=== PATIENT | male | born 1975 | race African-American/Black ===

== ENCOUNTER 2019-04-25 19:05 | Inpatient (IN) | payer OTHER ==
[2019-04-25 20:01] VITALS: BMI 31.8
--- NOTE | 2019-04-25 21:28 | HP ---
CIWA Score Nausea/Vomitin-No Nausea/No Vomiting Muscle Tremors: None Anxiety: 0-No Anxiety, at Ease Agitation: 0-Normal Activity Paroxysmal Sweats: No Perspiration Orientation: 2-Disoriented Date<2 days Tacttile Disturbances: 0-None Auditory Disturbances: 0-None Visual Disturbances: 3-Moderate Sensitivity (to lights) Headache: 0-None Present CIWA-Ar Total Score: 5 - Admission Criteria OASAS Guidelines: Admission for Medically Managed Detox: Requires at least one of the followin. CIWA greater than 12 2. Seizures within the past 24 hours 3. Delirium tremens within the past 24 hours 4. Hallucinations within the past 24 hours 5. Acute intervention needed for co occurring medical disorder 6. Acute intervention needed for co occurring psychiatric disorder 7. Severe withdrawal that cannot be handled at a lower level of care (continued vomiting, continued diarrhea, abnormal vital signs) requiring intravenous medication and/or fluids 8. Patient presents the following: Acute intervention needed for co-occurring med or psych disorder (s/p er txment at [facility] for s/p fall 2/2 alcohol intoxication ) Admission Criteria Met: Admission criteria met Admission ROS [facility] Chief Complaint: seeking detox for alcohol Allergies/Adverse Reactions: Allergies Allergy/AdvReac Type Severity Reaction Status Date / Time No Known Allergies Allergy Verified 04/25/19 20:01 History of Present Illness: ghere for alcohol detox. client was referred by [facility] after client presented their for a fall 2/2 alcohol intoxication. client was stabilized and referred fro detox. client presents w/o dc papers. case was d/w attending Dr. Lopez from [facility]. client presented for above head ct neg, ct spine, neg, facial ct nasal fx no txmnet needed. client presents with mild withdrawal sx's. reports daily alcohol intake last use 1 day ago. Denies eye coordinator of placement. denies hx/o black outs and sz. he also reports PCP abuse. Denies any significant clean time this past year. lives w/ mother, unemployed-disabled, pending court case. Exam Limitations: Physical Impairment (legally blind both eyes) - Ebola screening Have you traveled outside of the country in the last 21 days: No (N) Have you had contact with anyone from an Ebola affected area: No Do you have a fever: No - Review of Systems Constitutional: Changes in sleep EENT: reports: Blurred Vision (legally blind), Nose Congestion, Other (nasal fx) Respiratory: reports: No Symptoms reported Cardiac: reports: No Symptoms Reported GI: reports: No Symptoms Reported : reports: No Symptoms Reported Musculoskeletal: reports: No Symptoms Reported Neuro: reports: Other (nasal, upper and lower lip abrasion, right temporal ecchymosis) Endocrine: reports: No Symptoms Reported Hematology: reports: No Symptoms Reported Psychiatric: reports: Orientated x3, Anxious, Depressed (denies si/hi) Other Systems: Reviewed and Negative Patient History - Patient Medical History Hx Anemia: No Hx Asthma: Yes Hx Chronic Obstructive Pulmonary Disease (COPD): No Hx Cancer: No Hx Cardiac Disorders: No Hx Congestive Heart Failure: No Hx Hypertension: No Hx Hypercholesterolemia: Yes Hx Pacemaker: No HX Cerebrovascular Accident: No Hx Seizures: No Hx Dementia: No Hx Diabetes: No Hx Gastrointestinal Disorders: No Hx Liver Disease: No Hx Genitourinary Disorders: Yes (erection dysfunction) Hx Sexually Transmitted Disorders: No Hx Renal Disease (ESRD): No Hx Thyroid Disease: No Hx Human Immunodeficiency Virus (HIV): No Hx Hepatitis C: No Hx Depression: Yes (denies si/hi) Hx Suicide Attempt: No Hx Bipolar Disorder: No Hx Schizophrenia: No Other Medical History: legally blind - Patient Surgical History Past Surgical History: Yes Hx Orthopedic Surgery: Yes (r spine, hip, ankle, fibula,tibula fx w/ hardware repair) Anesthesia Reaction: No - PPD History Previous Implant?: Yes Documented Results: Positive w/o proof Implanted On Prior [facility] Admission?: No PPD to be Administered?: No - Smoking Cessation Smoking history: Former smoker Have you smoked in the past 12 months: No Initiated information on smoking cessation: No - Substance & Tx. History Hx Alcohol Use: Yes Hx Substance Use: Yes Substance Use Type: Alcohol, Tranquilizers (pcp) Hx Substance Use Treatment: No - Substances abused PCP Substance route: Smoking Frequency: Daily Amount used: 4 blunts Age of first use: 24 Date of last use: 04/24/19 Alcohol Substance route: Oral Frequency: Daily Amount used: 3-24 oz Age of first use: 14 Date of last use: 04/24/19 Admission Physical Exam [facility] - Vital Signs Vital Signs: Vital Signs - 24 hr 04/25/19 19:52 Temperature 98.9 F Respiratory 16 Rate Blood Pressure 142/86 - Physical General Appearance: Yes: Mild Distress, Anxious HEENTM: Yes: EOMI, Normocephalic, Normal Voice, Pharynx Normal, Nasal Congestion Respiratory: Yes: Chest Non-Tender, Lungs Clear, Normal Breath Sounds, No Respiratory Distress, No Accessory Muscle Use Neck: Yes: No masses,lesions,Nodules, Supple, Trachea in good position Breast: Yes: Breasts Symetrical Cardiology: Yes: Regular Rhythm, Regular Rate, S1, S2 Abdominal: Yes: Normal Bowel Sounds, Non Tender, Soft, Protuberent Genitourinary: Yes: Within Normal Limits Back: Yes: Normal Inspection Musculoskeletal: Yes: Other (UNSTEADY GAIT AMBUALTES WITH CANE) Extremities: Yes: Normal Capillary Refill, Normal Range of Motion, Non-Tender Neurological: Yes: Fully Oriented, Alert, Motor Strength 5/5, Depressed Affect Integumentary: Yes: Dry, Warm, Other (ABRASIONS TO NOSE, UPPER AND LOWER LIP KNUCKLES AND ECHHYMOTIC AREA TO R TEMPORAL) Lymphatic: Yes: Within Normal Limits - Diagnostic (1) Alcohol dependence with withdrawal, uncomplicated Current Visit: Yes Status: Acute (2) PCP (phencyclidine) abuse Current Visit: Yes Status: Acute (3) Status post fall Current Visit: Yes Status: Acute (4) Nasal fracture Current Visit: Yes Status: Acute Qualifiers: Encounter type: subsequent encounter Fracture healing: with routine healing (5) Ambulates with cane Current Visit: Yes Status: Chronic (6) Feels depressed Current Visit: Yes Status: Acute (7) Legally blind Current Visit: Yes Status: Chronic (8) HLD (hyperlipidemia) Current Visit: Yes Status: Chronic Qualifiers: Hyperlipidemia type: unspecified Qualified Code(s): E78.5 - Hyperlipidemia , unspecified (9) Asthma Current Visit: Yes Status: Chronic Qualifiers: Asthma severity: mild Asthma persistence: intermittent Asthma complication type: uncomplicated Qualified Code(s): J45.20 - Mild intermittent asthma, uncomplicated (10) History of TB (tuberculosis) Current Visit: Yes Status: Chronic Cleared for Admission S - Detox or Rehab [facility] Level of Care: Medically Managed Detox Regimen/Protocol: Librium Claeared for Rehab Admission: No Breathalyzer - Breathalyzer Breathalyzer: 0 Urine Drug Screen - Test Device Lot number: [id number] Expiration date: 11/27/20 - Control Is test valid?: Yes - Results Drug screen NEGATIVE: Yes Inpatient Rehab Admission - Rehab Decision to Admit Inpatient rehab admission?: No
[2019-04-25] MEDS ORDERED: ACETAMINOPHEN 325 MG TABLET (FP) PO PRN ×2 (21:40)
[2019-04-25] MEDS ORDERED: BISMUTH SUBSALICYLATE 524 MG/30 ML UD PO PRN (21:40)
[2019-04-25] MEDS ORDERED: MAG HYDROX/AL HYDROX/SIMETH 30 ML UNIT-DOSE CUP PO PRN (21:40)
[2019-04-25] MEDS ORDERED: DICYCLOMINE HCL 10 MG CAPSULE PO PRN (21:40)
[2019-04-25] MEDS ORDERED: MENTHOL/PHENOL 1 EACH UD MM PRN (21:40)
[2019-04-25] MEDS ORDERED: P-EPHED 60MG/TRIPROLIDI 2.5MG TABLET PO PRN (21:40)
[2019-04-25] MEDS ORDERED: guaiFENesin 200 MG/10 ML 10 ML UNIT-DOSE CUPS PO PRN (21:40)
[2019-04-25] MEDS ORDERED: IBUPROFEN 400 MG TABLET (FP) PO PRN (21:40)
[2019-04-25] MEDS ORDERED: ONDANSETRON *ODT* 4 MG TABLET SL PRN (21:40)
[2019-04-25] MEDS ORDERED: hydrOXYzine PAMOATE 25 MG CAPSULE (FP) PO PRN (21:40)
[2019-04-25] MEDS ORDERED: MAGNESIUM CITRATE 300 ML BOTTLE PO PRN (21:40)
[2019-04-25] MEDS ORDERED: chlordiazePOXIDE HCL 10 MG CAPSULE PO PRN (21:40)
[2019-04-25] MEDS ORDERED: MAGNESIUM HYDROX 2400MG/30ML ORAL SUSPENSION 30 ML CUP PO PRN (21:40)
[2019-04-25] MEDS ORDERED: METHOCARBAMOL 500 MG TABLET PO PRN (21:40)
[2019-04-25] MEDS: chlordiazePOXIDE HCL 25 MG CAPSULE PO SCH (23:31)
[2019-04-25] MEDS: THIAMINE HCL 100 MG TABLET (FP) PO SCH (23:31)
[2019-04-26] MEDS: chlordiazePOXIDE HCL 25 MG CAPSULE PO SCH ×3 (05:38→22:26)
[2019-04-26] MEDS: PRENATAL VITAMINS W/ FOLIC ACID TABLET (FP) PO SCH (10:33)
[2019-04-26 12:36] LABS: HEMATOCRIT 38.7 % (35.4-49); HEMOGLOBIN 12.7 GM/dL (11.7-16.9); MCH 31.5 pg (25.7-33.7); MCHC 32.7 g/dl (32.0-35.9); MEAN CELL VOLUME 96.3 fl (80-96); MEAN PLT VOLUME 8.2 fl (7.5-11.1); PLATELET COUNT 360 K/MM3 (134-434); RBC 4.02 M/mm3 (4.00-5.60); RDW 13.7 % (11.9-15.9); WHITE BLOOD COUNT 8.5 K/mm3 (4.0-10.0)
[2019-04-26 13:00] LABS: ALBUMIN 3.3 g/dl (3.4-5.0); BILIRUBIN,TOTAL 0.7 mg/dL (0.2-1); BLOOD UREA NITROGEN 9.7 mg/dL (7-18); CALCIUM 8.3 mg/dL (8.5-10.1); CREATININE 0.9 mg/dL (0.55-1.3); POTASSIUM 3.8 mmol/L (3.5-5.1); TOT PROT 6.5 g/dl (6.4-8.2)
[2019-04-26] MEDS: BACITRACIN 15 GM TUBE TOPICAL OINTMENT TP SCH ×2 (13:30→22:26)
--- NOTE | 2019-04-26 13:32 | EKG ---
Test Reason : Blood Pressure : / mmHG Vent. Rate : 090 BPM Atrial Rate : 090 BPM P-R Int : 140 ms QRS Dur : 106 ms QT Int : 382 ms P-R-T Axes : 044 039 051 degrees QTc Int : 467 ms SINUS RHYTHM WITH FREQUENT PREMATURE VENTRICULAR COMPLEXES OTHERWISE NORMAL ECG NO PREVIOUS ECGS AVAILABLE Confirmed by MD KIMBERLYN, JT ([id number]) on 04/26/2019 1:32:02 PM Referred By: Vamshi Nicole Confirmed By:JT SOFIA MD
--- NOTE | 2019-04-26 14:40 | EKG ---
Test Reason : Blood Pressure : / mmHG Vent. Rate : 085 BPM Atrial Rate : 085 BPM P-R Int : 142 ms QRS Dur : 098 ms QT Int : 366 ms P-R-T Axes : 061 038 053 degrees QTc Int : 435 ms SINUS RHYTHM WITH FREQUENT PREMATURE VENTRICULAR COMPLEXES OTHERWISE NORMAL ECG WHEN COMPARED WITH ECG OF 25-APR-2019 22:14, NON-SPECIFIC CHANGE IN ST SEGMENT IN ANTERIOR LEADS Confirmed by MD KIMBERLYN, JT ([id number]) on 04/26/2019 2:39:41 PM Referred By: Vamshi Nicole Confirmed By:JT SOFIA MD
--- NOTE | 2019-04-26 16:55 | PN ---
S Progress Note Note: Psychiatry Attending's note : Came to see patient. For psychiatric evaluation. Mr Vick is found asleep.
--- NOTE | 2019-04-26 17:56 | PN ---
S CIWA - CIWA Score Nausea/Vomitin-No Nausea/No Vomiting Muscle Tremors: None Anxiety: 2 Agitation: 0-Normal Activity Paroxysmal Sweats: 2 Orientation: 0-Oriented Tacttile Disturbances: 0-None Auditory Disturbances: 2-Mild Harshness/Frighten Visual Disturbances: 2-Mild Sensitivity Headache: 0-None Present CIWA-Ar Total Score: 8 BHS Progress Note (SOAP) Subjective: Anxious, Sweating. Objective: PATIENT A & O X 3, OBSERVED AMBULATING ON DETOX UNIT UNASSISTED. IN NO ACUTE DISTRESS. 04/26/19 17:57 Vital Signs Temperature 98.2 F 04/26/19 17:36 Pulse Rate 81 04/26/19 17:36 Respiratory Rate 17 04/26/19 17:36 Blood Pressure 144/86 04/26/19 17:36 O2 Sat by Pulse Oximetry (%) Laboratory Tests 04/26/19 04/26/19 04/26/19 07:30 07:30 07:30 WBC 8.5 RBC 4.02 Hgb 12.7 Hct 38.7 MCV 96.3 H MCH 31.5 MCHC 32.7 RDW 13.7 Plt Count 360 MPV 8.2 Sodium 140 Potassium 3.8 Chloride 107 Carbon Dioxide 27 Anion Gap 6 L BUN 9.7 Creatinine 0.9 Est GFR (CKD-EPI)AfAm 119.13 Est GFR (CKD-EPI)NonAf 102.79 Random Glucose 108 H Calcium 8.3 L Total Bilirubin 0.7 AST 18 ALT 27 Alkaline Phosphatase 48 Total Protein 6.5 Albumin 3.3 L RPR Titer Nonreactive LABS NOTED. Assessment: 04/26/19 17:58 WITHDRAWAL SYMPTOMS. Plan: CONTINUE DETOX. RESULTS OF DETOX ADMISSION AND REPEAT ECG'S NOTED (SINUS RHYTHM WITH PREMATURE VENTRICULAR COMPLEXES). PATIENT DENIES KNOWN HISTORY OF CARDIAC DISEASE. PATIENT DENIES CHEST PAIN OR DIZZINESS. PATIENT ADVISED TO IMMEDIATELY NOTIFY NURSING OR MEDICAL STAFF SHOULD HE BEGIN TO EXPERIENCE CHEST PAIN OR DIZZINESS AT ANY TIME AND TO FOLLOW-UP WITH PRIMARY CARE MEDICAL PROVIDER SOON POSSIBLE AFTER DISCHARGE FROM DETOX FOR THIS ECG FINDING. PATIENT VERBALIZED UNDERSTANDING OF RECOMMENDATION. COPY OF REPEAT ECG GIVEN TO PATIENT TO TAKE WITH HIM TO PRIMARY CARE MEDICAL PROVIDER FOR MEDICAL EVALUATION AFTER DISCHARGE FROM DETOX.
[2019-04-26] MEDS: THIAMINE HCL 100 MG TABLET (FP) PO SCH (22:26)
[2019-04-26] MEDS: MELATONIN 5 MG TABLETS PO PRN (22:27)
[2019-04-27] MEDS: chlordiazePOXIDE 5 MG CAPSULE PO SCH ×4 (06:36→22:26)
[2019-04-27] MEDS: BACITRACIN 15 GM TUBE TOPICAL OINTMENT TP SCH ×2 (10:37→22:26)
[2019-04-27] MEDS: PRENATAL VITAMINS W/ FOLIC ACID TABLET (FP) PO SCH (10:37)
[2019-04-27] MEDS ORDERED: cloNIDine HCL 0.1 MG TABLET PO PRN ×2 (13:21→13:23)
--- NOTE | 2019-04-27 13:24 | PN ---
S CIWA - CIWA Score Nausea/Vomitin-No Nausea/No Vomiting Muscle Tremors: None Anxiety: 3 Agitation: 2 Paroxysmal Sweats: 2 Orientation: 0-Oriented Tacttile Disturbances: 0-None Auditory Disturbances: 0-None Visual Disturbances: 0-None Headache: 0-None Present CIWA-Ar Total Score: 7 S Progress Note (SOAP) Subjective: Feels ok, medication working ok Objective: 04/27/19 13:18 Last Vital Signs Temp Pulse Resp BP Pulse Ox 96.3 F L 108 H 18 132/87 04/27/19 09:25 04/27/19 09:25 04/27/19 09:25 04/27/19 09:25 Tachycardia and elevated b/p noted: denies htn (not on medication) Laboratory Tests 04/26/19 04/26/19 04/26/19 07:30 07:30 07:30 WBC 8.5 RBC 4.02 Hgb 12.7 Hct 38.7 MCV 96.3 H MCH 31.5 MCHC 32.7 RDW 13.7 Plt Count 360 MPV 8.2 Sodium 140 Potassium 3.8 Chloride 107 Carbon Dioxide 27 Anion Gap 6 L BUN 9.7 Creatinine 0.9 Est GFR (CKD-EPI)AfAm 119.13 Est GFR (CKD-EPI)NonAf 102.79 Random Glucose 108 H Calcium 8.3 L Total Bilirubin 0.7 AST 18 ALT 27 Alkaline Phosphatase 48 Total Protein 6.5 Albumin 3.3 L RPR Titer Nonreactive Labs reviewed Assessment: 04/27/19 13:24 Continue detox Encouraged PO water intake Tachycardia and HTN: most likely r/t withdrawal, start clonidine prn Obtain EKG for tachycardia if it persists
[2019-04-27] MEDS: THIAMINE HCL 100 MG TABLET (FP) PO SCH (22:26)
[2019-04-27] MEDS: MELATONIN 5 MG TABLETS PO PRN (22:26)
[2019-04-28] MEDS ORDERED: chlordiazePOXIDE HCL 10 MG CAPSULE PO PRN
[2019-04-28] MEDS: chlordiazePOXIDE HCL 10 MG CAPSULE PO SCH ×3 (06:20→21:50)
[2019-04-28] MEDS: BACITRACIN 15 GM TUBE TOPICAL OINTMENT TP SCH ×3 (08:30→22:12)
[2019-04-28] MEDS: PRENATAL VITAMINS W/ FOLIC ACID TABLET (FP) PO SCH (10:16)
--- NOTE | 2019-04-28 11:05 | PN ---
S CIWA - CIWA Score Nausea/Vomitin Muscle Tremors: 2 Anxiety: 2 Agitation: 2 Paroxysmal Sweats: No Perspiration Orientation: 0-Oriented Tacttile Disturbances: 1-Very Mild Itch/Numbness Auditory Disturbances: 0-None Visual Disturbances: 0-None Headache: 2-Mild CIWA-Ar Total Score: 11 S Progress Note (SOAP) Subjective: alert,irritable,anxious,interrupted sleep,tremor Objective: 04/28/19 11:04 Vital Signs Temperature 97.9 F 04/28/19 09:09 Pulse Rate 84 04/28/19 09:09 Respiratory Rate 18 04/28/19 09:09 Blood Pressure 128/62 04/28/19 09:09 O2 Sat by Pulse Oximetry (%) Assessment: 04/28/19 11:05 withdrawal symptom Plan: continue detox librium regimen,discharge in am
[2019-04-28] MEDS: THIAMINE HCL 100 MG TABLET (FP) PO SCH (22:11)
[2019-04-29] MEDS ORDERED: chlordiazePOXIDE HCL 10 MG CAPSULE PO ONE (05:00)
[2019-04-29 06:35] VITALS: TEMP 97.9
--- NOTE | 2019-04-29 08:31 | DS ---
[facility] Detox Discharge Summary Admission Date: 04/25/19 Discharge Date: 04/29/19 - History Present History: Alcohol Dependence, Pcp Dependence - Physical Exam Results Vital Signs: Vital Signs Temperature 97.9 F 04/29/19 06:34 Pulse Rate 74 04/29/19 06:34 Respiratory Rate 20 04/29/19 06:34 Blood Pressure 100/76 04/29/19 06:34 O2 Sat by Pulse Oximetry (%) Pertinent Admission Physical Exam Findings: Vital Signs Temperature 97.9 F 04/29/19 06:34 Pulse Rate 74 04/29/19 06:34 Respiratory Rate 20 04/29/19 06:34 Blood Pressure 100/76 04/29/19 06:34 O2 Sat by Pulse Oximetry (%) Laboratory Tests 04/26/19 04/26/19 04/26/19 07:30 07:30 07:30 WBC 8.5 RBC 4.02 Hgb 12.7 Hct 38.7 MCV 96.3 H MCH 31.5 MCHC 32.7 RDW 13.7 Plt Count 360 MPV 8.2 Sodium 140 Potassium 3.8 Chloride 107 Carbon Dioxide 27 Anion Gap 6 L BUN 9.7 Creatinine 0.9 Est GFR (CKD-EPI)AfAm 119.13 Est GFR (CKD-EPI)NonAf 102.79 Random Glucose 108 H Calcium 8.3 L Total Bilirubin 0.7 AST 18 ALT 27 Alkaline Phosphatase 48 Total Protein 6.5 Albumin 3.3 L RPR Titer Nonreactive aaox3 ambulating no acute distress - Treatment Hospital Course: Detox Protocol Followed, Detoxed Safely, Responded well, Discharged Condition Good, Rehab Referral Accepted Patient has Accepted a Rehab Referral to: [facility] inpatient rehab - Medication Discharge Medications: Ambulatory Orders NK [No Known Home Medication] 04/25/19 - Diagnosis (1) Alcohol dependence with withdrawal, uncomplicated Current Visit: Yes Status: Chronic (2) Nasal fracture Current Visit: Yes Status: Acute Qualifiers: Encounter type: subsequent encounter Fracture healing: with routine healing (3) PCP (phencyclidine) abuse Current Visit: Yes Status: Chronic (4) Ambulates with cane Current Visit: Yes Status: Chronic (5) Asthma Current Visit: Yes Status: Chronic Qualifiers: Asthma severity: mild Asthma persistence: intermittent Asthma complication type: uncomplicated Qualified Code(s): J45.20 - Mild intermittent asthma, uncomplicated (6) HLD (hyperlipidemia) Current Visit: Yes Status: Chronic Qualifiers: Hyperlipidemia type: unspecified Qualified Code(s): E78.5 - Hyperlipidemia , unspecified (7) History of TB (tuberculosis) Current Visit: Yes Status: Chronic (8) Legally blind Current Visit: Yes Status: Chronic - AMA Did Patient Leave Against Medical Advice: No
[2019-04-29 09:18] VITALS: BP 141/73; PULSE 83
[2019-04-29] MEDS: PRENATAL VITAMINS W/ FOLIC ACID TABLET (FP) PO SCH (10:13)
[2019-04-29] MEDS: BACITRACIN 15 GM TUBE TOPICAL OINTMENT TP SCH (10:14)
[2019-04-29 15:09] LABS: PH,URINE 5.5 (5.0-8.0); URINE APPEARANCE CLEAR; URINE BILIRUBIN NEGATIVE (NEGATIVE); URINE COLOR YELLOW; URINE GLUCOSE (UA) NEGATIVE (NEGATIVE); URINE KETONE NEGATIVE (NEGATIVE); URINE LEUK ESTERASE NEGATIVE (NEGATIVE); URINE NITRITE NEGATIVE (NEGATIVE); URINE PROTEIN NEGATIVE (NEGATIVE)
== END 2019-04-29 13:12 | disposition other institution (70) | DRG 897 ==
LOC: YASAS 19:05 → Y6N 21:57
PROVIDERS: ADMIT Allergy & Immunology; ATTEND Allergy & Immunology
PROC: HZ2ZZZZ Detoxification Services for Substance Abuse Treatment (ICD-10-PCS; principal; 2019-04-25)
DX: F10.230 Alcohol dependence with withdrawal, uncomplicated (principal); F16.10 Hallucinogen abuse, uncomplicated; J45.20 Mild intermittent asthma, uncomplicated; E78.5 Hyperlipidemia, unspecified; H54.8 Legal blindness, as defined in USA; R00.0 Tachycardia, unspecified; I10 Essential (primary) hypertension; R26.2 Difficulty in walking, not elsewhere classified; Z99.89 Dependence on other enabling machines and devices; Z56.0 Unemployment, unspecified; N52.9 Male erectile dysfunction, unspecified; Z87.891 Personal history of nicotine dependence; S02.2XXD Fracture of nasal bones, subsequent encounter for fracture with routine healing; X58.XXXD Exposure to other specified factors, subsequent encounter
CPT/HCPCS: 36415; 71046-TC-FY; 80053; 81003; 85027; 86593; 93005; 93010; J0735

== ENCOUNTER 2019-04-29 12:54 | Inpatient (IN) | payer OTHER ==
--- NOTE | 2019-04-29 16:59 | HP ---
[facility] Rehab Assess/Revision - Admission History Admitted to Rehab from: [address] - Vital signs Vital Signs: Vital Signs Period Temp Pulse Resp BP Sys/Adkins Pulse Ox Last 24 Hr 98.1 F 95 18 125/68 - Findings Detox History & Physical reviewed: Yes Concur with findings: Yes Inpatient Rehab Admission - Rehab Decision to Admit Inpatient rehab admission?: Yes - Initial Determination Are CD services needed?: Yes Free of communicable disease: Yes Not in need of hospitalization: Yes - Rehab Admission Criteria Previous failed treatment: Yes Poor recovery environment: Yes Comorbidities: Yes Lacks judgement: Yes Patient is meeting Inpatient Rehab admission criteria:: Yes (pt admitted for alcohol detox-completed detox, now in rehab)
[2019-04-29] MEDS ORDERED: guaiFENesin 200 MG/10 ML 10 ML UNIT-DOSE CUPS PO PRN (17:03)
[2019-04-29] MEDS ORDERED: MAGNESIUM CITRATE 300 ML BOTTLE PO PRN (17:03)
[2019-04-29] MEDS ORDERED: MENTHOL/PHENOL 1 EACH UD MM PRN (17:03)
[2019-04-29] MEDS ORDERED: MAGNESIUM HYDROX 2400MG/30ML ORAL SUSPENSION 30 ML CUP PO PRN (17:03)
[2019-04-29] MEDS ORDERED: P-EPHED 60MG/TRIPROLIDI 2.5MG TABLET PO PRN (17:03)
[2019-04-29] MEDS ORDERED: hydrOXYzine PAMOATE 25 MG CAPSULE (FP) PO PRN (17:03)
[2019-04-29] MEDS ORDERED: MAG HYDROX/AL HYDROX/SIMETH 30 ML UNIT-DOSE CUP PO PRN (17:03)
[2019-04-29] MEDS ORDERED: NICOTINE POLACRILEX 2 MG GUM BUC PRN (17:03)
[2019-04-29] MEDS: MELATONIN 5 MG TABLETS PO PRN (21:19)
[2019-04-29] MEDS: THIAMINE HCL 100 MG TABLET (FP) PO SCH (21:19)
[2019-04-30] MEDS: PRENATAL VITAMINS W/ FOLIC ACID TABLET (FP) PO SCH (10:06)
[2019-04-30] MEDS: VITAMINS A AND D TOPICAL OINTMENT 60 GM TUBE TP SCH ×2 (12:00→18:00)
--- NOTE | 2019-04-30 17:56 | PN ---
[facility] Progress Note Note: Patient admitted to rehab for alcohol dependence. Referred from [facility] and completed detox prior to rehab admission. Labs reviewed, V/S stable. Continue rehab services. Vital Signs (72 hours) 04/29/19 04/30/19 04/30/19 13:30 00:30 03:30 Temperature 98.1 F Pulse Rate 95 H Respiratory 18 18 18 Rate Blood Pressure 125/68 04/30/19 06:50 Temperature 97.9 F Pulse Rate 79 Respiratory 18 Rate Blood Pressure 131/89
[2019-04-30] MEDS: THIAMINE HCL 100 MG TABLET (FP) PO SCH (22:09)
[2019-05-01] MEDS: VITAMINS A AND D TOPICAL OINTMENT 60 GM TUBE TP SCH ×4 (00:11→17:51)
[2019-05-01] MEDS: PRENATAL VITAMINS W/ FOLIC ACID TABLET (FP) PO SCH (10:14)
[2019-05-01] MEDS ORDERED: PT OWN MED DRAWER 7, Y5N ONE (12:10)
[2019-05-01] MEDS: THIAMINE HCL 100 MG TABLET (FP) PO SCH (21:19)
[2019-05-01] MEDS: MELATONIN 5 MG TABLETS PO PRN (21:19)
[2019-05-02] MEDS: VITAMINS A AND D TOPICAL OINTMENT 60 GM TUBE TP SCH ×5 (00:41→23:24)
[2019-05-02] MEDS: PRENATAL VITAMINS W/ FOLIC ACID TABLET (FP) PO SCH (10:35)
[2019-05-02] MEDS: THIAMINE HCL 100 MG TABLET (FP) PO SCH (21:30)
[2019-05-02] MEDS: MELATONIN 5 MG TABLETS PO PRN (21:31)
[2019-05-03] MEDS: VITAMINS A AND D TOPICAL OINTMENT 60 GM TUBE TP SCH ×4 (06:06→23:20)
[2019-05-03] MEDS: PRENATAL VITAMINS W/ FOLIC ACID TABLET (FP) PO SCH (10:33)
[2019-05-03] MEDS: MELATONIN 5 MG TABLETS PO PRN (21:49)
[2019-05-03] MEDS: THIAMINE HCL 100 MG TABLET (FP) PO SCH (21:49)
[2019-05-04] MEDS: VITAMINS A AND D TOPICAL OINTMENT 60 GM TUBE TP SCH ×3 (06:06→23:11)
[2019-05-04] MEDS: PRENATAL VITAMINS W/ FOLIC ACID TABLET (FP) PO SCH (10:00)
[2019-05-04] MEDS: THIAMINE HCL 100 MG TABLET (FP) PO SCH (21:15)
[2019-05-04] MEDS: MELATONIN 5 MG TABLETS PO PRN (21:15)
[2019-05-05] MEDS: VITAMINS A AND D TOPICAL OINTMENT 60 GM TUBE TP SCH ×4 (06:23→23:41)
[2019-05-05] MEDS: PRENATAL VITAMINS W/ FOLIC ACID TABLET (FP) PO SCH (09:37)
[2019-05-05] MEDS: IBUPROFEN 400 MG TABLET (FP) PO PRN ×2 (09:37→21:37)
[2019-05-05] MEDS: LIDOCAINE 5% TOPICAL PATCH TP SCH (13:28)
[2019-05-05] MEDS: THIAMINE HCL 100 MG TABLET (FP) PO SCH (21:36)
[2019-05-05] MEDS: LIDOCAINE PATCH REMOVAL MC SCH (21:36)
[2019-05-05] MEDS ORDERED: PT OWN MED DRAWER 7, Y5N ONE (21:37)
[2019-05-05] MEDS: MELATONIN 5 MG TABLETS PO PRN (21:38)
[2019-05-06] MEDS: VITAMINS A AND D TOPICAL OINTMENT 60 GM TUBE TP SCH ×4 (06:23→23:41)
[2019-05-06] MEDS: LIDOCAINE 5% TOPICAL PATCH TP SCH (10:17)
[2019-05-06] MEDS: PRENATAL VITAMINS W/ FOLIC ACID TABLET (FP) PO SCH (10:17)
[2019-05-06] MEDS: IBUPROFEN 400 MG TABLET (FP) PO PRN ×2 (10:19→21:17)
[2019-05-06] MEDS: ACETAMINOPHEN 325 MG TABLET (FP) PO PRN (12:40)
[2019-05-06] MEDS: MELATONIN 5 MG TABLETS PO PRN (21:16)
[2019-05-06] MEDS: LIDOCAINE PATCH REMOVAL MC SCH (21:16)
[2019-05-06] MEDS: THIAMINE HCL 100 MG TABLET (FP) PO SCH (21:16)
[2019-05-07] MEDS: VITAMINS A AND D TOPICAL OINTMENT 60 GM TUBE TP SCH (06:05)
[2019-05-07] MEDS: IBUPROFEN 400 MG TABLET (FP) PO PRN ×2 (07:07→21:41)
[2019-05-07] MEDS ORDERED: VITAMINS A AND D TOPICAL OINTMENT 60 GM TUBE TP PRN (09:15)
[2019-05-07] MEDS ORDERED: METHYL SALICYLATE/MENTHOL OINT 30 GM TUBE TP PRN (09:24)
[2019-05-07] MEDS: LIDOCAINE 5% TOPICAL PATCH TP SCH (10:41)
[2019-05-07] MEDS: PRENATAL VITAMINS W/ FOLIC ACID TABLET (FP) PO SCH (10:41)
[2019-05-07] MEDS: MELATONIN 5 MG TABLETS PO PRN (21:40)
[2019-05-07] MEDS: THIAMINE HCL 100 MG TABLET (FP) PO SCH (21:40)
[2019-05-07] MEDS: LIDOCAINE PATCH REMOVAL MC SCH (21:42)
[2019-05-08] MEDS: PRENATAL VITAMINS W/ FOLIC ACID TABLET (FP) PO SCH (09:46)
[2019-05-08] MEDS: LIDOCAINE 5% TOPICAL PATCH TP SCH (09:47)
[2019-05-08] MEDS: IBUPROFEN 400 MG TABLET (FP) PO PRN ×3 (09:48→21:14)
[2019-05-08] MEDS: MELATONIN 5 MG TABLETS PO PRN (21:13)
[2019-05-08] MEDS: LIDOCAINE PATCH REMOVAL MC SCH (21:13)
[2019-05-08] MEDS: THIAMINE HCL 100 MG TABLET (FP) PO SCH (21:13)
[2019-05-09] MEDS: IBUPROFEN 400 MG TABLET (FP) PO PRN ×2 (08:04→21:31)
[2019-05-09] MEDS: LIDOCAINE 5% TOPICAL PATCH TP SCH (10:10)
[2019-05-09] MEDS: PRENATAL VITAMINS W/ FOLIC ACID TABLET (FP) PO SCH (10:10)
[2019-05-09] MEDS: THIAMINE HCL 100 MG TABLET (FP) PO SCH (21:29)
[2019-05-09] MEDS: LOPERAMIDE HCL 2 MG CAPSULE PO PRN (21:30)
[2019-05-09] MEDS: MELATONIN 5 MG TABLETS PO PRN (21:31)
[2019-05-09] MEDS: LIDOCAINE PATCH REMOVAL MC SCH (21:32)
[2019-05-09] MEDS ORDERED: TRIMETHOBENZAMIDE HCL 200MG/2ML INJ IM PRN (23:47)
[2019-05-10] MEDS: LOPERAMIDE HCL 2 MG CAPSULE PO PRN (06:57)
[2019-05-10] MEDS: ACETAMINOPHEN 325 MG TABLET (FP) PO PRN (06:57)
[2019-05-10] MEDS: LIDOCAINE 5% TOPICAL PATCH TP SCH (11:29)
[2019-05-10] MEDS: PRENATAL VITAMINS W/ FOLIC ACID TABLET (FP) PO SCH (11:30)
[2019-05-10] MEDS: LIDOCAINE PATCH REMOVAL MC SCH (21:30)
[2019-05-10] MEDS: THIAMINE HCL 100 MG TABLET (FP) PO SCH (21:30)
[2019-05-10] MEDS: MELATONIN 5 MG TABLETS PO PRN (21:30)
[2019-05-10] MEDS: IBUPROFEN 400 MG TABLET (FP) PO PRN (21:31)
[2019-05-11] MEDS: PRENATAL VITAMINS W/ FOLIC ACID TABLET (FP) PO SCH (10:08)
[2019-05-11] MEDS: LIDOCAINE 5% TOPICAL PATCH TP SCH (10:08)
[2019-05-11] MEDS: IBUPROFEN 400 MG TABLET (FP) PO PRN (10:10)
[2019-05-11] MEDS: LIDOCAINE PATCH REMOVAL MC SCH (21:17)
[2019-05-11] MEDS: MELATONIN 5 MG TABLETS PO PRN (21:17)
[2019-05-11] MEDS: THIAMINE HCL 100 MG TABLET (FP) PO SCH (21:17)
[2019-05-12] MEDS: LOPERAMIDE HCL 2 MG CAPSULE PO PRN ×2 (04:58→10:05)
[2019-05-12] MEDS: PRENATAL VITAMINS W/ FOLIC ACID TABLET (FP) PO SCH (09:57)
[2019-05-12] MEDS: LIDOCAINE 5% TOPICAL PATCH TP SCH (09:57)
[2019-05-12] MEDS ORDERED: ONDANSETRON *ODT* 4 MG TABLET SL PRN (12:49)
--- NOTE | 2019-05-12 14:22 | PN ---
S Progress Note Note: PATIENT SEEN FOR C/O NAUSEA AND DIARRHEA. PATIENT BELIEVES IT IS DIET RELATED AND HAS BEEN ABSTAINING FROM LACTOSE RICH FOODS. REPORTS MILD RELIEF WITH IMMODIUM AND DIET CHANGES. Vital Signs Temperature 98.3 F 05/12/19 06:49 Pulse Rate 80 05/12/19 06:49 Respiratory Rate 18 05/12/19 06:49 Blood Pressure 111/58 L 05/12/19 06:49 O2 Sat by Pulse Oximetry (%) PE ALERT AND ORIENTED X 3 SKIN WARM AND DRY +PERRLA, EOMS INTACT BL GI NT, ND EXT FULL ROM, AMB AD ZOE A/P: NAUSEA AND DIARRHEA INCREASE ORAL FLUIDS CONTINUE IMMODIUM PRN ADD ZOFRAN PRN FOR NAUSEA
[2019-05-12] MEDS: MELATONIN 5 MG TABLETS PO PRN (21:36)
[2019-05-12] MEDS: LIDOCAINE PATCH REMOVAL MC SCH (21:36)
[2019-05-12] MEDS: THIAMINE HCL 100 MG TABLET (FP) PO SCH (21:36)
[2019-05-12] MEDS ORDERED: HYDROCORTISONE 2.5% TOPICAL CREAM 30 GM TUBE PR SCH (22:00)
[2019-05-13 06:53] VITALS: BP 124/70; PULSE 88; TEMP 98.6
--- NOTE | 2019-05-13 09:02 | DS ---
[facility] Rehab Discharge Summary - [facility] Rehab Discharge Summary Admission Date: 04/29/19 Discharge Date: 05/13/19 - History Present History: Alcohol dependence, PCP dependence Pertinent Past History: Pt was admitted for PCP and alcohol dependence. Pt uses PCP as a hallucinogen- makes the brain slow. d/w pt relapse prevention- meditation, food plan Pt states will f/u BI- outpt NA Pt states he does not need medications f/u with PCP in [place] - Discharge Physical Exam Vital Signs: Vital Signs Temperature 98.6 F 05/13/19 06:51 Pulse Rate 88 05/13/19 06:51 Respiratory Rate 18 05/13/19 06:51 Blood Pressure 124/70 05/13/19 06:51 O2 Sat by Pulse Oximetry (%) Pertinent Admission Physical Exam Findings: alert and oriented ambulatory poor vision- legally blind - Treatment Discharge Condition: Rehabilitated safely - Medication Discharge Medications: Ambulatory Orders NK [No Known Home Medication] 04/25/19 - Medication-Assisted Treatment (MAT) Medication-Assisted Treatment (MAT): No - Discharge Instructions Diet, activity, other medical instructions: Diet: eating every 4 hours Activity: increase activity as tolerated Other medical instructions: - Follow-up Referral Minutes to complete discharge: 30 - AMA Did Patient Leave Against Medical Advice: No
[2019-05-13] MEDS: PRENATAL VITAMINS W/ FOLIC ACID TABLET (FP) PO SCH (09:37)
[2019-05-13] MEDS: LIDOCAINE 5% TOPICAL PATCH TP SCH (09:38)
== END 2019-05-13 09:44 | disposition home or self-care (01) | DRG 895 ==
LOC: YASAS 12:54 → Y3W 12:56
PROVIDERS: ADMIT Neuromusculoskeletal Medicine & OMM; ATTEND Neuromusculoskeletal Medicine & OMM
PROC: HZ42ZZZ Group Counseling for Substance Abuse Treatment, Cognitive-Behavioral (ICD-10-PCS; principal; 2019-04-29)
DX: F10.20 Alcohol dependence, uncomplicated (principal); F16.20 Hallucinogen dependence, uncomplicated; J45.20 Mild intermittent asthma, uncomplicated; R11.0 Nausea; R19.7 Diarrhea, unspecified; H54.8 Legal blindness, as defined in USA; N52.9 Male erectile dysfunction, unspecified; E78.5 Hyperlipidemia, unspecified; R26.2 Difficulty in walking, not elsewhere classified; Z99.89 Dependence on other enabling machines and devices; S02.2XXD Fracture of nasal bones, subsequent encounter for fracture with routine healing; X58.XXXD Exposure to other specified factors, subsequent encounter; Z87.891 Personal history of nicotine dependence; Z86.11 Personal history of tuberculosis; Z56.0 Unemployment, unspecified

== ENCOUNTER 2019-12-02 11:50 | Inpatient (IN) | payer OTHER ==
--- NOTE | 2019-12-02 12:04 | BHS.RME ---
Substance Use & Tx History - Substance Use History PCP Substance amount: $40 Frequency of use: Daily Substance route: Smoking Date of Last Use: 11/30/19 Alcohol Substance amount: 3 24 oz beers Frequency of use: Daily Substance route: Oral Date of Last Use: 12/01/19 Marijuana/Hashish Substance amount: 2 blunts Frequency of use: Daily Substance route: Smoking Date of Last Use: 12/02/19 - Last Treatment Date of last treatment: 04/25/19-05/13/19 Treatment type: Substance Use Disorder ([facility]) Where was last treatment: Detox (completed detox and rehab but relapsed immediately because he was forced to do it due to his mother.) Physical/Psych/Mental Status - Behavior General Behavior: Increased activity (restlessness, agitation) Eye Contact: Normal - Cooperativeness Cooperativeness: Cooperative - Thinking Thought Processes: Tight, Logical, Goal Directed - Physical Health Problems Is patient presently having any pain?: No Does patient presently have any injuries (include location): No Does patient currently have a fever: No Is patient : No CIWA Nausea/Vomitin-No Nausea/No Vomiting Muscle Tremors: 1-None Visible, but [place] Anxiety: 6 Agitation: 2 Paroxysmal Sweats: No Perspiration Orientation: 3-Disoriented Date>2 days Tacttile Disturbances: 0-None Auditory Disturbances: 0-None Visual Disturbances: 0-None Headache: 2-Mild CIWA-Ar Total Score: 14
--- NOTE | 2019-12-02 15:10 | HP ---
CIWA Score Nausea/Vomitin-No Nausea/No Vomiting Muscle Tremors: 1-None Visible, but [place] Anxiety: 6 Agitation: 2 Paroxysmal Sweats: No Perspiration Orientation: 3-Disoriented Date>2 days Tacttile Disturbances: 0-None Auditory Disturbances: 0-None Visual Disturbances: 0-None Headache: 2-Mild CIWA-Ar Total Score: 14 - Admission Criteria OASAS Guidelines: Admission for Medically Managed Detox: Requires at least one of the followin. CIWA greater than 12 2. Seizures within the past 24 hours 3. Delirium tremens within the past 24 hours 4. Hallucinations within the past 24 hours 5. Acute intervention needed for co occurring medical disorder 6. Acute intervention needed for co occurring psychiatric disorder 7. Severe withdrawal that cannot be handled at a lower level of care (continued vomiting, continued diarrhea, abnormal vital signs) requiring intravenous medication and/or fluids 8. Admitting History and Physical - Admission Chief Complaint: Patient is a 44 year old male with history of degenerative myopia (legally blind), asthma, hypertension, hyperlipidemia, alcohol use disorder, nicotine dependence, PCP dependence presents for detox. History of Present Illness: Patient is a 44 year old male with history of degenerative myopia (legally blind), asthma, hypertension, hyperlipidemia, alcohol use disorder, nicotine dependence, PCP dependence presents for detox. Was seen in [facility] ED 11/30 after a fall (related to alcohol consumption). Patient presents here from [facility] ED today. Completed detox and rehab 04/25/2019- 05/13/2019. PMH: asthma, hypertension, hyperlipidemia, degenerative myopia (legally blind) PSH: right ankle, and right hip/ femur fracture- repaired with rods. Social: homeless, currently in [facility] Psych: depression Legal: denies - Substance Use History PCP Substance amount: $40 Frequency of use: Daily Substance route: Smoking Date of Last Use: 11/30/19. First used at 24 years old. Alcohol Substance amount: 3 24 oz beers Frequency of use: Daily Substance route: Oral Date of Last Use: 12/01/19 (first use at 13 years old. admits blackout yesterda y. 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 Marijuana/Hashish Substance amount: 2 blunts Frequency of use: Daily Substance route: Smoking Date of Last Use: 12/02/19 (first smoked at 13 years old. - Last Treatment Date of last treatment: 04/25/19-05/13/19 Treatment type: Substance Use Disorder ([facility]ANTOS) Where was last treatment: Detox (completed detox and rehab but relapsed immediately because he was forced to do it due to his mother.) History Source: Patient Limitations to Obtaining History: No Limitations - Smoking History Smoking history: Former smoker Have you smoked in the past 12 months: No - Alcohol/Substance Use Hx Alcohol Use: Yes Admission ROS S - HPI Allergies/Adverse Reactions: Allergies Allergy/AdvReac Type Severity Reaction Status Date / Time No Known Allergies Allergy Verified 04/25/19 20:01 Exam Limitations: No Limitations - Ebola screening Have you traveled outside of the country in the last 21 days: No Have you been sick,other than usual withdrawal symptoms: No Do you have a fever: No - Review of Systems Constitutional: No Symptoms Reported EENT: reports: Other (legally blind) Respiratory: denies: Cough, Shortness of Breath Cardiac: denies: Chest Pain, Palpitations GI: denies: Nausea, Vomiting, Abdominal cramping : denies: Burning, Dysuria Musculoskeletal: denies: Back Pain, Joint Pain Integumentary: denies: Lesions, Rash Neuro: denies: Numbness, Weakness Endocrine: denies: Unexplained Weight Loss, Change in Weight Hematology: denies: Blood Clots, Easy Bleeding Psychiatric: reports: Depressed, other (denies suicidal, homicidal ideation) Patient History - Patient Medical History Hx Anemia: No Hx Asthma: No Hx Chronic Obstructive Pulmonary Disease (COPD): No Hx Cancer: No Hx Cardiac Disorders: No Hx Congestive Heart Failure: No Hx Hypertension: No Hx Hypercholesterolemia: Yes Hx Pacemaker: No HX Cerebrovascular Accident: No Hx Seizures: No Hx Dementia: No Hx Diabetes: No Hx Gastrointestinal Disorders: No Hx Liver Disease: No Hx Genitourinary Disorders: No Hx Sexually Transmitted Disorders: No Hx Renal Disease (ESRD): No Hx Thyroid Disease: No Hx Human Immunodeficiency Virus (HIV): No Hx Hepatitis C: No Hx Depression: Yes Hx Suicide Attempt: Yes Hx Bipolar Disorder: No Hx Schizophrenia: No - Patient Surgical History Past Surgical History: Yes Hx Neurologic Surgery: No Hx Cataract Extraction: No Hx Cardiac Surgery: No Hx Lung Surgery: No Hx Breast Surgery: No Hx Breast Biopsy: No Hx Abdominal Surgery: No Hx Appendectomy: No Hx Cholecystectomy: No Hx Genitourinary Surgery: No Hx Section: No Hx Orthopedic Surgery: Yes (r spine, hip, ankle, fibula,tibula fx w/ hardware repair) Anesthesia Reaction: No - Smoking Cessation Smoking history: Former smoker Have you smoked in the past 12 months: No Hx Chewing Tobacco Use: No Initiated information on smoking cessation: No Admission Physical Exam [facility] - Physical General Appearance: Yes: No Apparent Distress, Other (legally blind) HEENTM: Yes: Hearing grossly Normal, Normocephalic, Normal Voice Respiratory: Yes: Lungs Clear, Normal Breath Sounds, No Accessory Muscle Use Neck: Yes: Supple Breast: Yes: Breast Exam Deferred Cardiology: Yes: Regular Rhythm, Regular Rate, S1, S2 Abdominal: Yes: Normal Bowel Sounds, Non Tender, Flat, Soft Musculoskeletal: Yes: Within Normal Limits, Back pain Extremities: Yes: Within Normal Limits, Normal Range of Motion Neurological: Yes: Alert, Motor Strength 5/5, Normal Response Integumentary: Yes: Dry, Warm Cleared for Admission [facility] - Detox or Rehab [facility] Level of Care: Medically Managed Detox Regimen/Protocol: Librium Claeared for Rehab Admission: No Screened but not Admitted - Documentation of Visit Screened but not Admitted: No Breathalyzer - Breathalyzer Breathalyzer: 0 Urine Drug Screen - Test Device Lot number: [id number] Expiration date: 12/01/21 - Control Is test valid?: Yes - Results Drug screen NEGATIVE: No Urine drug screen results: FEN-Fentanyl Inpatient Rehab Admission - Rehab Decision to Admit Inpatient rehab admission?: No
[2019-12-02] MEDS ORDERED: MAG HYDROX/AL HYDROX/SIMETH 30 ML UNIT-DOSE CUP PO PRN (15:18)
[2019-12-02] MEDS ORDERED: ACETAMINOPHEN 325 MG TABLET (FP) PO PRN ×2 (15:18)
[2019-12-02] MEDS ORDERED: ONDANSETRON *ODT* 4 MG TABLET SL PRN (15:18)
[2019-12-02] MEDS ORDERED: BISMUTH SUBSALICYLATE 524 MG/30 ML UD PO PRN (15:18)
[2019-12-02] MEDS ORDERED: MENTHOL/PHENOL 1 EACH UD MM PRN (15:18)
[2019-12-02] MEDS ORDERED: MAGNESIUM HYDROX 2400MG/30ML ORAL SUSPENSION 30 ML CUP PO PRN (15:18)
[2019-12-02] MEDS ORDERED: chlordiazePOXIDE HCL 25 MG CAPSULE PO PRN (15:18)
[2019-12-02] MEDS ORDERED: METHOCARBAMOL 500 MG TABLET PO PRN (15:18)
[2019-12-02] MEDS ORDERED: IBUPROFEN 400 MG TABLET (FP) PO PRN (15:18)
[2019-12-02] MEDS ORDERED: MAGNESIUM CITRATE 300 ML BOTTLE PO PRN (15:18)
[2019-12-02 15:58] VITALS: BMI 27.9
[2019-12-02] MEDS ORDERED: TUBERCULIN PPD 5 TU/0.1ML VIAL ID ONE (17:23)
[2019-12-02] MEDS: hydrOXYzine PAMOATE 25 MG CAPSULE (FP) PO SCH ×2 (17:36→22:18)
[2019-12-02] MEDS: chlordiazePOXIDE HCL 25 MG CAPSULE PO SCH ×2 (17:36→22:18)
[2019-12-02] MEDS: MELATONIN 5 MG TABLETS PO SCH (22:18)
[2019-12-02] MEDS: THIAMINE HCL 100 MG TABLET (FP) PO SCH (22:18)
[2019-12-03] MEDS: hydrOXYzine PAMOATE 25 MG CAPSULE (FP) PO SCH ×5 (06:42→22:48)
[2019-12-03] MEDS: chlordiazePOXIDE HCL 25 MG CAPSULE PO SCH ×4 (06:42→22:49)
[2019-12-03] MEDS: PRENATAL VITAMINS W/ FOLIC ACID TABLET (FP) PO SCH (10:17)
--- NOTE | 2019-12-03 11:46 | CONSULT ---
[facility] Psychiatric Consult - Data Date of interview: 12/03/19 Admission source: [facility] Identifying data: Patient is a 44 year old single male, father of two, unemployed, homeless, and is supported by [facility]. This is one of multiple admissions for patient. Patient admitted to for alcohol dependence. Substance Abuse History: Substance Use History. PCP. Substance amount: $40. Frequency of use: Daily. Substance route: Smoking. Date of Last Use: 11/30/19. First used at 24 years old. Alcohol. Substance amount: 3 24 oz beers. Frequency of use: Daily. Substance route: Oral. Date of Last Use: 12/01/19 (first use at 13 years old. admits blackout yesterday. 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 Marijuana/Hashish. Substance amount: 2 blunts. Frequency of use: Daily. Substance route: Smoking. Date of Last Use: 12/02/19 (first smoked at 13 years old. Medical History: surgery for the followingL right spine, hip, ankle, fibula,tibula fx w/ hardware repair) Psychiatric History: Patient denies history of psychiatric hospitalizations, outpatient psychiatric care, and suicide attempt. At present patient reports difficulty sleeping. Physical/Sexual Abuse/Trauma History: Not discussed. Mental Status Exam - Mental Status Exam Alert and Oriented to: Time, Place, Person Cognitive Function: Good Patient Appearance: Well Groomed Mood: Withdrawn Affect: Mood Congruent Patient Behavior: Fatigued, Asleep (Needed to be awaken to complete assessment. ) Speech Pattern: Delayed (Patient in bed asleep. ) Voice Loudness: Mildly Soft/Quiet Thought Process: Goal Oriented Thought Disorder: Not Present Hallucinations: Denies Suicidal Ideation: Denies Homicidal Ideation: Denies Insight/Judgement: Poor Sleep: Poorly Appetite: Fair Muscle strength/Tone: Normal Gait/Station: Other (Gait not observed.) Psychiatric Findings - Problem List ([place] 1, 2,3) (1) Substance induced mood disorder Current Visit: Yes Status: Suspected (2) Alcohol dependence with withdrawal, uncomplicated Current Visit: Yes Status: Acute (3) Substance-induced sleep disorder Current Visit: Yes Status: Acute - Initial Treatment Plan Initial Treatment Plan: Psychoeducation provided. Detoxification in progress. Patient informed that melatonin 5mg is ordered.
[2019-12-03 11:57] LABS: ALBUMIN 3.5 g/dl (3.4-5.0); BILIRUBIN,TOTAL 0.7 mg/dL (0.2-1); BLOOD UREA NITROGEN 8.2 mg/dL (7-18); CALCIUM 9.1 mg/dL (8.5-10.1); POTASSIUM 3.9 mmol/L (3.5-5.1)
[2019-12-03 12:09] LABS: HEMATOCRIT 40.8 % (35.4-49); HEMOGLOBIN 13.2 GM/dL (11.7-16.9); MCH 32.4 pg (25.7-33.7); MCHC 32.4 g/dl (32.0-35.9); MEAN PLT VOLUME 7.7 fl (7.5-11.1); PLATELET COUNT 380 K/MM3 (134-434); RBC 4.08 M/mm3 (4.00-5.60); WHITE BLOOD COUNT 6.1 K/mm3 (4.0-10.0)
--- NOTE | 2019-12-03 12:50 | PN ---
S CIWA - CIWA Score Nausea/Vomitin-No Nausea/No Vomiting Muscle Tremors: 2 Anxiety: 3 Agitation: 2 Paroxysmal Sweats: 1-Minimal Palms Moist Orientation: 0-Oriented Tacttile Disturbances: 0-None Auditory Disturbances: 0-None Visual Disturbances: 0-None Headache: 0-None Present CIWA-Ar Total Score: 8 BHS Progress Note (SOAP) Subjective: Pt is a 44 y/o male admitted to detox for withdrawal sx. c/o fatigue/sleepy but with spontaneous response sl anxiety sl tremors Objective: 12/03/19 12:52 Vital Signs - 24 hr 12/02/19 12/02/19 12/02/19 15:46 17:55 20:40 Temperature 98.6 F 97.7 F 97.7 F Pulse Rate 82 62 81 Respiratory 20 18 18 Rate Blood Pressure 129/89 140/88 138/92 O2 Sat by Pulse 95 Oximetry (%) 12/03/19 05:41 Temperature 97.8 F Pulse Rate 64 Respiratory 18 Rate Blood Pressure 117/74 O2 Sat by Pulse 97 Oximetry (%) Laboratory Tests 12/03/19 12/03/19 12/03/19 08:00 08:00 08:00 WBC 6.1 RBC 4.08 Hgb 13.2 Hct 40.8 MCV 100.0 H MCH 32.4 MCHC 32.4 RDW 16.0 H Plt Count 380 MPV 7.7 Sodium 140 Potassium 3.9 Chloride 105 Carbon Dioxide 27 Anion Gap 8 BUN 8.2 Creatinine 1.0 Est GFR (CKD-EPI)AfAm 104.88 Est GFR (CKD-EPI)NonAf 90.49 Random Glucose 111 H Calcium 9.1 Total Bilirubin 0.7 AST 22 ALT 27 Alkaline Phosphatase 41 L Total Protein 7.0 Albumin 3.5 Syphilis Serology Non-reactive covid-19 result pending alert o x 3 nad seen in bed but communicated needs coherently Assessment: 12/03/19 12:52 withdrawal sx Plan: continue detox increase po fluids maintain safety
[2019-12-03] MEDS: MELATONIN 5 MG TABLETS PO SCH (22:49)
[2019-12-03] MEDS: THIAMINE HCL 100 MG TABLET (FP) PO SCH (22:49)
[2019-12-04] MEDS: hydrOXYzine PAMOATE 25 MG CAPSULE (FP) PO SCH ×5 (06:57→22:39)
[2019-12-04] MEDS: chlordiazePOXIDE HCL 25 MG CAPSULE PO SCH ×4 (06:58→22:39)
[2019-12-04] MEDS: PRENATAL VITAMINS W/ FOLIC ACID TABLET (FP) PO SCH (10:46)
--- NOTE | 2019-12-04 16:47 | PN ---
S CIWA - CIWA Score Nausea/Vomitin-No Nausea/No Vomiting Muscle Tremors: 2 Anxiety: 2 Agitation: 3 Paroxysmal Sweats: 2 Orientation: 0-Oriented Tacttile Disturbances: 0-None Auditory Disturbances: 0-None Visual Disturbances: 0-None Headache: 0-None Present CIWA-Ar Total Score: 9 BHS Progress Note (SOAP) Subjective: Pt reports detox proceeding well and medication effective for sx relief. Objective: 12/04/19 16:46 Vital Signs - 24 hr 12/03/19 12/03/19 12/03/19 16:57 19:22 20:42 Temperature 97.8 F 97.1 F L Pulse Rate 103 H 92 H 81 Respiratory 20 17 Rate Blood Pressure 112/71 115/77 O2 Sat by Pulse 98 Oximetry (%) 12/04/19 12/04/19 12/04/19 05:44 10:00 13:50 Temperature 97.1 F L 97.3 F L 97.5 F L Pulse Rate 81 91 H 90 Respiratory 17 18 18 Rate Blood Pressure 112/90 108/64 101/60 O2 Sat by Pulse 98 95 Oximetry (%) Laboratory Tests 12/02/19 12/03/19 12/03/19 16:21 08:00 08:00 WBC 6.1 RBC 4.08 Hgb 13.2 Hct 40.8 MCV 100.0 H MCH 32.4 MCHC 32.4 RDW 16.0 H Plt Count 380 MPV 7.7 Sodium 140 Potassium 3.9 Chloride 105 Carbon Dioxide 27 Anion Gap 8 BUN 8.2 Creatinine 1.0 Est GFR (CKD-EPI)AfAm 104.88 Est GFR (CKD-EPI)NonAf 90.49 Random Glucose 111 H Calcium 9.1 Total Bilirubin 0.7 AST 22 ALT 27 Alkaline Phosphatase 41 L Total Protein 7.0 Albumin 3.5 Syphilis Serology COVID-19 (AMY) Not detected HIV Ag/Ab Combo Qual 12/03/19 12/03/19 08:00 08:00 WBC RBC Hgb Hct MCV MCH MCHC RDW Plt Count MPV Sodium Potassium Chloride Carbon Dioxide Anion Gap BUN Creatinine Est GFR (CKD-EPI)AfAm Est GFR (CKD-EPI)NonAf Random Glucose Calcium Total Bilirubin AST ALT Alkaline Phosphatase Total Protein Albumin Syphilis Serology Non-reactive COVID-19 (AMY) HIV Ag/Ab Combo Qual Negative covid-19 not detected alert o x 3 nad oob ambulating with steady gait Assessment: 12/04/19 16:48 withdrawal sx Plan: cont detox
[2019-12-04 17:12] LABS: URINE APPEARANCE CLEAR; URINE BILIRUBIN NEGATIVE (NEGATIVE); URINE COLOR YELLOW; URINE GLUCOSE (UA) NEGATIVE (NEGATIVE); URINE KETONE NEGATIVE (NEGATIVE); URINE LEUK ESTERASE NEGATIVE (NEGATIVE); URINE NITRITE NEGATIVE (NEGATIVE); URINE PROTEIN NEGATIVE (NEGATIVE); URINE UROBILINOGEN 0.2 mg/dL (0.2-1.0)
[2019-12-04] MEDS: THIAMINE HCL 100 MG TABLET (FP) PO SCH (22:39)
[2019-12-04] MEDS: MELATONIN 5 MG TABLETS PO SCH (22:40)
[2019-12-05] MEDS ORDERED: chlordiazePOXIDE HCL 10 MG CAPSULE PO PRN
[2019-12-05] MEDS: hydrOXYzine PAMOATE 25 MG CAPSULE (FP) PO SCH ×5 (07:17→22:19)
[2019-12-05] MEDS: chlordiazePOXIDE HCL 10 MG CAPSULE PO SCH ×4 (07:17→22:19)
--- NOTE | 2019-12-05 09:50 | PN ---
[facility] CIWA - CIWA Score Nausea/Vomitin-No Nausea/No Vomiting Muscle Tremors: 1-None Visible, but [place] Anxiety: 2 Agitation: 0-Normal Activity Paroxysmal Sweats: No Perspiration Orientation: 0-Oriented Tacttile Disturbances: 0-None Auditory Disturbances: 0-None Visual Disturbances: 0-None Headache: 0-None Present CIWA-Ar Total Score: 3 S Progress Note (SOAP) Subjective: Mr. Vick reports he is doing well and experiencing mild tremors and anxiety but is otherwise ok. Objective: 12/05/19 09:46 Physical General Appearance: Yes: No Apparent Distress, Other (legally blind) HEENTM: Yes: Hearing grossly Normal, Normocephalic, Normal Voice Respiratory: Yes: Lungs Clear, Normal Breath Sounds, No Accessory Muscle Use Musculoskeletal: Within Normal Limits, Back pain Extremities: Normal Range of Motion Neurological: Yes: Alert, Motor Strength 5/5, Normal Response Integumentary: Yes: Dry, Warm Laboratory Results - last 24 hr 12/04/19 13:45 Urine Color Yellow Urine Appearance Clear Urine pH 5.0 Ur Specific [place] 1.011 Urine Protein Negative Urine Glucose (UA) Negative Urine Ketones Negative Urine Blood Negative Urine Nitrite Negative Urine Bilirubin Negative Urine Urobilinogen 0.2 Ur Leukocyte Esterase Negative Home Medication List Medication Instructions Recorded Confirmed Type NK [No Known Home Medication] 04/25/19 12/02/19 History Active Medications Generic Name Dose Route Start Last Admin Trade Name Freq PRN Reason Stop Dose Admin Acetaminophen 650 mg 12/02/19 15:18 Tylenol - PO Q6H PRN PAIN LEVEL 4 - 6 Acetaminophen 650 mg 12/02/19 15:18 Tylenol - PO Q6H PRN FEVER Al Hydroxide/Mg Hydroxide 30 ml 12/02/19 15:18 Mylanta Oral Suspension - PO Q6H PRN DYSPEPSIA Bismuth Subsalicylate 524 mg 12/02/19 15:18 Pepto-Bismol - PO Q1H PRN DIARRHEA Chlordiazepoxide HCl 10 mg 12/05/19 05:00 12/05/19 07:17 Librium - PO 12/05/19 23:01 Not Given D6G-UAP JOHN Chlordiazepoxide HCl 10 mg 12/06/19 05:00 Librium - PO 12/06/19 17:01 Q12H JOHN Chlordiazepoxide HCl 10 mg 12/05/19 00:00 Librium - PO 12/06/19 00:00 Q4H PRN WITHDRAWAL(CONT SUBST) Chlordiazepoxide HCl 10 mg 12/07/19 05:00 Librium - PO 12/07/19 05:01 ONCE@0500 ONE Eucalyptus/Menthol/Phenol/Sorbitol 1 each 12/02/19 15:18 Cepastat Lozenge - MM 12/08/19 15:18 Q4H PRN SORE THROAT Hydroxyzine Pamoate 25 mg 12/02/19 18:00 12/05/19 07:17 Vistaril - PO 12/08/19 15:18 Not Given Q4HWA JOHN Ibuprofen 400 mg 12/02/19 15:18 Motrin - PO Q6H PRN PAIN LEVEL 1 - 3 Magnesium Citrate 300 ml 12/02/19 15:18 Citroma - PO Q48H PRN CONSTIPATION Magnesium Hydroxide 30 ml 12/02/19 15:18 Milk Of Magnesia - PO PRN PRN CONSTIPATION Melatonin 5 mg 12/02/19 22:00 12/04/19 22:40 Melatonin PO 5 mg HS JOHN Administration Methocarbamol 500 mg 12/02/19 15:18 Robaxin - PO 12/08/19 15:18 Q6H PRN MUSCLE SPASMS Ondansetron HCl 4 mg 12/02/19 15:18 Zofran Odt - SL 12/08/19 15:21 Q8H PRN Nausea/Vomiting Multivit/Folic Acid/Iron 1 tab 12/03/19 10:00 12/04/19 10:46 Vitamins (Sjr) - PO 1 tab DAILY JOHN Administration Thiamine HCl 100 mg 12/02/19 22:00 12/04/19 22:39 Vitamin B1 - PO 100 mg HS JOHN Administration Vital Signs Temperature 97.3 F L 12/05/19 05:50 Pulse Rate 80 12/05/19 05:50 Respiratory Rate 20 12/05/19 05:50 Blood Pressure 97/60 12/05/19 05:50 O2 Sat by Pulse Oximetry (%) 98 12/05/19 05:50 Assessment: 12/05/19 09:48 1. Alcohol Detox, Day 4 Librium Plan: 1. Continue Alcohol Detox, Librium protocol to be completed 8/8, but patient requesting a couple more days.
[2019-12-05] MEDS: PRENATAL VITAMINS W/ FOLIC ACID TABLET (FP) PO SCH (10:31)
[2019-12-05] MEDS: MELATONIN 5 MG TABLETS PO SCH (22:19)
[2019-12-05] MEDS: THIAMINE HCL 100 MG TABLET (FP) PO SCH (22:19)
[2019-12-06] MEDS: chlordiazePOXIDE HCL 10 MG CAPSULE PO SCH ×2 (06:55→18:07)
[2019-12-06] MEDS: PRENATAL VITAMINS W/ FOLIC ACID TABLET (FP) PO SCH (10:37)
--- NOTE | 2019-12-06 11:57 | PN ---
[facility] CIWA - CIWA Score Nausea/Vomitin-No Nausea/No Vomiting Muscle Tremors: None Anxiety: 1-Mildly Anxious Agitation: 0-Normal Activity Paroxysmal Sweats: 1-Minimal Palms Moist Orientation: 0-Oriented Tacttile Disturbances: 0-None Auditory Disturbances: 0-None Visual Disturbances: 0-None Headache: 0-None Present CIWA-Ar Total Score: 2 BHS Progress Note (SOAP) Subjective: c/o mild withdrawal symptoms. Objective: 12/06/19 11:54 Vital Signs 12/06/19 12/06/19 06:35 08:50 Temperature 97.7 F 97.3 F L Pulse Rate 70 90 Respiratory 16 18 Rate Blood Pressure 99/54 L 99/59 L O2 Sat by Pulse 100 Oximetry (%) Laboratory Last Values WBC 6.1 K/mm3 (4.0-10.0) 12/03/19 08:00 RBC 4.08 M/mm3 (4.00-5.60) 12/03/19 08:00 Hgb 13.2 GM/dL (11.7-16.9) 12/03/19 08:00 Hct 40.8 % (35.4-49) 12/03/19 08:00 MCV 100.0 fl (80-96) H 12/03/19 08:00 MCH 32.4 pg (25.7-33.7) 12/03/19 08:00 MCHC 32.4 g/dl (32.0-35.9) 12/03/19 08:00 RDW 16.0 % (11.9-15.9) H 12/03/19 08:00 Plt Count 380 K/MM3 (134-434) 12/03/19 08:00 MPV 7.7 fl (7.5-11.1) 12/03/19 08:00 Sodium 140 mmol/L (136-145) 12/03/19 08:00 Potassium 3.9 mmol/L (3.5-5.1) 12/03/19 08:00 Chloride 105 mmol/L (98-107) 12/03/19 08:00 Carbon Dioxide 27 mmol/L (21-32) 12/03/19 08:00 Anion Gap 8 MMOL/L (8-16) 12/03/19 08:00 BUN 8.2 mg/dL (7-18) 12/03/19 08:00 Creatinine 1.0 mg/dL (0.55-1.3) 12/03/19 08:00 Est GFR (CKD-EPI)AfAm 104.88 12/03/19 08:00 Est GFR (CKD-EPI)NonAf 90.49 12/03/19 08:00 Random Glucose 111 mg/dL (74-106) H 12/03/19 08:00 Calcium 9.1 mg/dL (8.5-10.1) 12/03/19 08:00 Total Bilirubin 0.7 mg/dL (0.2-1) 12/03/19 08:00 AST 22 U/L (15-37) 12/03/19 08:00 ALT 27 U/L (13-61) 12/03/19 08:00 Alkaline Phosphatase 41 U/L (45-117) L 12/03/19 08:00 Total Protein 7.0 g/dl (6.4-8.2) 12/03/19 08:00 Albumin 3.5 g/dl (3.4-5.0) 12/03/19 08:00 Urine Color Yellow 12/04/19 13:45 Urine Appearance Clear 12/04/19 13:45 Urine pH 5.0 (5.0-8.0) 12/04/19 13:45 Ur Specific [place] 1.011 (1.010-1.035) 12/04/19 13:45 Urine Protein Negative (NEGATIVE) 12/04/19 13:45 Urine Glucose (UA) Negative (NEGATIVE) 12/04/19 13:45 Urine Ketones Negative (NEGATIVE) 12/04/19 13:45 Urine Blood Negative (NEGATIVE) 12/04/19 13:45 Urine Nitrite Negative (NEGATIVE) 12/04/19 13:45 Urine Bilirubin Negative (NEGATIVE) 12/04/19 13:45 Urine Urobilinogen 0.2 mg/dL (0.2-1.0) 12/04/19 13:45 Ur Leukocyte Esterase Negative (NEGATIVE) 12/04/19 13:45 Syphilis Serology Non-reactive (NONREACTIVE) 12/03/19 08:00 COVID-19 (AMY) Not detected (Not Detected) 12/02/19 16:21 HIV Ag/Ab Combo Qual Negative (NEGATIVE) 12/03/19 08:00 Labs noted. Assessment: 12/06/19 11:57 AOX3 and in no acute respiratory distress. Full ROM, ambulating in the unit. mild Withdrawal symptoms. For d/c tomorrow. Plan: continue detox.
[2019-12-06] MEDS: THIAMINE HCL 100 MG TABLET (FP) PO SCH (22:07)
[2019-12-06] MEDS: MELATONIN 5 MG TABLETS PO SCH (22:08)
[2019-12-07] MEDS ORDERED: chlordiazePOXIDE HCL 10 MG CAPSULE PO ONE (05:00)
[2019-12-07 09:12] VITALS: BP 119/81; PULSE 109; TEMP 96.6
[2019-12-07] MEDS: PRENATAL VITAMINS W/ FOLIC ACID TABLET (FP) PO SCH (10:28)
--- NOTE | 2019-12-07 10:33 | DS ---
[facility] Detox Discharge Summary Admission Date: 12/02/19 Discharge Date: 12/07/19 - History Present History: Alcohol Dependence Additional Comments: 44 years old male admitted on 12/02/19 for alcohol withdrawal sx management treated with librium detox regiment seen by psychiatrist initiated melatonin mr cisse has completed the librium regiment and is tolerated well ambulating with cane slow steady alert oriented x 3 speech clearly General Appearance: Yes: No Apparent Distress, Other (legally blind) HEENTM: Yes: Hearing grossly Normal, Normocephalic, Normal Voice Respiratory: Yes: Lungs Clear, Normal Breath Sounds, No Accessory Muscle Use Neck: Yes: Supple Breast: Yes: Breast Exam Deferred Cardiology: Yes: Regular Rhythm, Regular Rate, S1, S2 Abdominal: Yes: Normal Bowel Sounds, Non Tender, Flat, Soft Musculoskeletal: Yes: Within Normal Limits, Back pain Extremities: Yes: Within Normal Limits, Normal Range of Motion Neurological: Yes: Alert, Motor Strength 5/5, Normal Response Integumentary: Yes: Dry, Warm Pertinent Past History: time for discharge 34 minutes - Physical Exam Results Vital Signs: Vital Signs Temperature 96.6 F L 12/07/19 08:49 Pulse Rate 109 H 12/07/19 08:49 Respiratory Rate 20 12/07/19 08:49 Blood Pressure 119/81 12/07/19 08:49 O2 Sat by Pulse Oximetry (%) 96 12/07/19 05:32 Pertinent Admission Physical Exam Findings: alcohol withdrawal Laboratory Tests 12/02/19 12/03/19 12/03/19 16:21 08:00 08:00 WBC 6.1 RBC 4.08 Hgb 13.2 Hct 40.8 MCV 100.0 H MCH 32.4 MCHC 32.4 RDW 16.0 H Plt Count 380 MPV 7.7 Sodium 140 Potassium 3.9 Chloride 105 Carbon Dioxide 27 Anion Gap 8 BUN 8.2 Creatinine 1.0 Est GFR (CKD-EPI)AfAm 104.88 Est GFR (CKD-EPI)NonAf 90.49 Random Glucose 111 H Calcium 9.1 Total Bilirubin 0.7 AST 22 ALT 27 Alkaline Phosphatase 41 L Total Protein 7.0 Albumin 3.5 Urine Color Urine Appearance Urine pH Ur Specific [place] Urine Protein Urine Glucose (UA) Urine Ketones Urine Blood Urine Nitrite Urine Bilirubin Urine Urobilinogen Ur Leukocyte Esterase Syphilis Serology COVID-19 (AMY) Not detected HIV Ag/Ab Combo Qual 12/03/19 12/03/19 12/04/19 08:00 08:00 13:45 WBC RBC Hgb Hct MCV MCH MCHC RDW Plt Count MPV Sodium Potassium Chloride Carbon Dioxide Anion Gap BUN Creatinine Est GFR (CKD-EPI)AfAm Est GFR (CKD-EPI)NonAf Random Glucose Calcium Total Bilirubin AST ALT Alkaline Phosphatase Total Protein Albumin Urine Color Yellow Urine Appearance Clear Urine pH 5.0 Ur Specific [place] 1.011 Urine Protein Negative Urine Glucose (UA) Negative Urine Ketones Negative Urine Blood Negative Urine Nitrite Negative Urine Bilirubin Negative Urine Urobilinogen 0.2 Ur Leukocyte Esterase Negative Syphilis Serology Non-reactive COVID-19 (AMY) HIV Ag/Ab Combo Qual Negative - Treatment Hospital Course: Detox Protocol Followed, Detoxed Safely, Responded well, Discharged Condition Good, Rehab Referral Accepted Patient has Accepted a Rehab Referral to: [facility] - Medication Discharge Medications: Ambulatory Orders NK [No Known Home Medication] 04/25/19 - Diagnosis (1) Alcohol dependence with withdrawal, uncomplicated Current Visit: Yes Status: Acute (2) Substance induced mood disorder Current Visit: Yes Status: Suspected (3) Ambulates with cane Current Visit: Yes Status: Chronic (4) Asthma Current Visit: Yes Status: Chronic Qualifiers: Asthma severity: mild Asthma persistence: intermittent Asthma complication type: uncomplicated Qualified Code(s): J45.20 - Mild intermittent asthma, uncomplicated (5) History of TB (tuberculosis) Current Visit: Yes Status: Resolved - AMA Did Patient Leave Against Medical Advice: No CIWA Score - CIWA Score Nausea/Vomitin-No Nausea/No Vomiting Muscle Tremors: None Anxiety: 1-Mildly Anxious Agitation: 0-Normal Activity Paroxysmal Sweats: No Perspiration Orientation: 0-Oriented Tacttile Disturbances: 0-None Auditory Disturbances: 0-None Visual Disturbances: 0-None Headache: 0-None Present CIWA-Ar Total Score: 1
--- NOTE | 2019-12-15 07:56 | PN ---
Teaching Attending Note Name of Resident: Teddy Grey ATTENDING PHYSICIAN STATEMENT I saw and evaluated the patient. I reviewed the resident's note and discussed the case with the resident. I agree with the resident's findings and plan as documented. SUBJECTIVE: OBJECTIVE: ASSESSMENT AND PLAN: Agreed with resident plan for admission for detox.
== END 2019-12-07 14:16 | disposition home or self-care (01) | DRG 897 ==
LOC: YASAS 11:50 → Y5N DETOX 15:42 → Y3N 12-04 15:39
PROVIDERS: ADMIT Allergy & Immunology; ATTEND Allergy & Immunology
PROC: HZ2ZZZZ Detoxification Services for Substance Abuse Treatment (ICD-10-PCS; principal; 2019-12-02)
DX: F10.230 Alcohol dependence with withdrawal, uncomplicated (principal); F16.20 Hallucinogen dependence, uncomplicated; F19.282 Other psychoactive substance dependence with psychoactive substance-induced sleep disorder; F12.20 Cannabis dependence, uncomplicated; F19.24 Other psychoactive substance dependence with psychoactive substance-induced mood disorder; H44.23 Degenerative myopia, bilateral; H54.8 Legal blindness, as defined in USA; R26.2 Difficulty in walking, not elsewhere classified; Z99.89 Dependence on other enabling machines and devices; Z86.11 Personal history of tuberculosis; Z87.891 Personal history of nicotine dependence
CPT/HCPCS: 36415; 80053; 81003; 85027; 86780; 87389; U0003